=== PATIENT | female | born 1965 | race Caucasian/White ===

== ENCOUNTER 2022-03-02 17:02 | Observation (INO) ==
[2022-03-02] MEDS ORDERED: Ampicillin/Sulbactam 1,500 MG in 0.9 % Sodium Chloride Mini Bag 100 ML IVPB ONE (17:26)
[2022-03-02] MEDS ORDERED: Iopamidol - 370 500 ML MLS IVP ONE (17:27)
[2022-03-02 18:18] LABS: Basophils # 0.1 K/mcL (0.0-0.2); Basophils % 0.9 %; Eosinophils # 0.4 K/mcL (0.0-0.6); Eosinophils % 6.1 %; Hemoglobin 12.1 g/dL (11.5-15.4); Immature Granulocytes % 0.2 % (0-4); Lymphocytes # 1.9 K/mcL (0.6-4.6); Lymphocytes % 28.7 %; Mean Corpuscular HGB Conc 32.7 g/dL (31.6-35.5); Mean Corpuscular Hemoglobin 28.5 pg (28.0-33.3); Mean Corpuscular Volume 87.3 fL (83.0-100.0); Mean Platelet Volume 9.9 fL (9.4-12.4); Monocytes # 0.5 K/mcL (0.0-1.3); Monocytes % 7.8 %; Neutrophils # 3.7 K/mcL (1.6-8.9); Platelet Count 260 K/mcL (140-400); Red Blood Count 4.24 M/mcL (3.82-4.97); Red Cell Distribution Width 13.5 % (11.5-14.5); Segmented Neutrophils % 56.3 %; White Blood Count 6.6 K/mcL (4.3-11.1)
[2022-03-02 18:35] LABS: BUN/Creatinine Ratio 17 (6-26); Blood Urea Nitrogen 10 mg/dL (6-20); Calcium 9.5 mg/dL (8.6-10.3); Carbon Dioxide 26 mEq/L (23-29); Chloride 104 mEq/L (98-107); Glucose 121 mg/dL (70-105); Osmolality,Calculated 286 (280-300); Potassium 3.3 mEq/L (3.5-5.1); Sodium 138 mEq/L (136-145)
[2022-03-02] MEDS ORDERED: Potassium Effervescent 25 MEQ TABLET.EFF PO ONE (18:37)
[2022-03-02] MEDS ORDERED: Ondansetron ODT 4 MG TAB.RAPDIS SL PRN (21:14)
[2022-03-02] MEDS ORDERED: Naloxone 0.4 MG/ML INJ IVP PRN (21:14)
[2022-03-02] MEDS ORDERED: Melatonin 3 MG TABLET PO PRN (21:14)
[2022-03-02] MEDS ORDERED: Ringers Solution, Lactated 500 ML IVC SCH (21:45)
[2022-03-02] MEDS: Ampicillin/Sulbactam 1,500 MG in 0.9 % Sodium Chloride Mini Bag 100 ML IVPB SCH (23:35)
[2022-03-03 05:17] LABS: Basophils # 0.1 K/mcL (0.0-0.2); Basophils % 0.9 %; Eosinophils # 0.5 K/mcL (0.0-0.6); Eosinophils % 8.6 %; Hematocrit 33.9 % (35.3-44.9); Hemoglobin 11.1 g/dL (11.5-15.4); Immature Granulocytes % 0.2 % (0-4); Lymphocytes # 1.9 K/mcL (0.6-4.6); Lymphocytes % 34.1 %; Mean Corpuscular HGB Conc 32.7 g/dL (31.6-35.5); Mean Corpuscular Hemoglobin 28.7 pg (28.0-33.3); Mean Corpuscular Volume 87.6 fL (83.0-100.0); Monocytes # 0.6 K/mcL (0.0-1.3); Neutrophils # 2.5 K/mcL (1.6-8.9); Platelet Count 223 K/mcL (140-400); Red Blood Count 3.87 M/mcL (3.82-4.97); Red Cell Distribution Width 13.5 % (11.5-14.5); Segmented Neutrophils % 45.2 %; White Blood Count 5.6 K/mcL (4.3-11.1)
[2022-03-03 05:30] LABS: Prothrombin Time 11.2 Seconds (9.4-12.1)
[2022-03-03 05:32] LABS: Activated Partial Thrombo Time 33.4 Seconds (26.0-36.0)
[2022-03-03 05:36] LABS: Alanine Aminotransferase 12 Units/L (7-52); Alkaline Phosphatase 78 Units/L (34-104); Aspartate Amino Transferase 14 Units/L (13-39); BUN/Creatinine Ratio 19 (6-26); Bilirubin,Total 0.3 mg/dL (0.3-1.0); Blood Urea Nitrogen 10 mg/dL (6-20); Calcium 9.1 mg/dL (8.6-10.3); Carbon Dioxide 26 mEq/L (23-29); Chloride 107 mEq/L (98-107); Glucose 106 mg/dL (70-105); Osmolality,Calculated 287 (280-300); Potassium 3.8 mEq/L (3.5-5.1); Sodium 139 mEq/L (136-145)
[2022-03-03] MEDS: Ampicillin/Sulbactam 1,500 MG in 0.9 % Sodium Chloride Mini Bag 100 ML IVPB SCH ×4 (05:59→23:35)
[2022-03-03] MEDS: *HR* Enoxaparin 40 MG/0.4 ML SYRINGE SQ SCH (05:59)
[2022-03-03] MEDS ORDERED: *HR* OxyCODONE Immed Rel 5 MG TABLET PO PRN (06:49)
[2022-03-03] MEDS ORDERED: *HR* HYDROcodone/Acet 5/325 mg TABLET PO PRN (06:49)
[2022-03-03] MEDS: Acetaminophen 325 MG TABLET PO PRN ×3 (06:54→23:35)
[2022-03-03] MEDS: Lactobacillus 1 EACH CAP.SPRINK PO SCH ×2 (08:19→21:00)
[2022-03-04] MEDS: *HR* Enoxaparin 40 MG/0.4 ML SYRINGE SQ SCH ×2 (05:37→05:40)
[2022-03-04] MEDS: Ampicillin/Sulbactam 1,500 MG in 0.9 % Sodium Chloride Mini Bag 100 ML IVPB SCH ×4 (05:37→23:35)
[2022-03-04] MEDS: Lactobacillus 1 EACH CAP.SPRINK PO SCH ×2 (08:20→20:46)
[2022-03-04] MEDS: Acetaminophen 325 MG TABLET PO PRN (13:47)
[2022-03-05 03:39] LABS: Basophils # 0.1 K/mcL (0.0-0.2); Eosinophils # 0.6 K/mcL (0.0-0.6); Eosinophils % 9.6 %; Hematocrit 37.1 % (35.3-44.9); Hemoglobin 12.2 g/dL (11.5-15.4); Immature Granulocytes % 0.2 % (0-4); Lymphocytes # 2.5 K/mcL (0.6-4.6); Lymphocytes % 39.4 %; Mean Corpuscular HGB Conc 32.9 g/dL (31.6-35.5); Mean Corpuscular Hemoglobin 28.5 pg (28.0-33.3); Mean Corpuscular Volume 86.7 fL (83.0-100.0); Mean Platelet Volume 9.8 fL (9.4-12.4); Monocytes # 0.5 K/mcL (0.0-1.3); Monocytes % 8.2 %; Neutrophils # 2.6 K/mcL (1.6-8.9); Platelet Count 259 K/mcL (140-400); Red Blood Count 4.28 M/mcL (3.82-4.97); Red Cell Distribution Width 13.4 % (11.5-14.5); Segmented Neutrophils % 41.6 %; White Blood Count 6.2 K/mcL (4.3-11.1)
[2022-03-05 03:57] LABS: BUN/Creatinine Ratio 23 (6-26); Blood Urea Nitrogen 12 mg/dL (6-20); Calcium 9.2 mg/dL (8.6-10.3); Carbon Dioxide 24 mEq/L (23-29); Chloride 108 mEq/L (98-107); Glucose 97 mg/dL (70-105); Magnesium 1.9 mg/dL (1.6-2.6); Osmolality,Calculated 292 (280-300); Potassium 4.1 mEq/L (3.5-5.1); Sodium 141 mEq/L (136-145)
[2022-03-05] MEDS: Acetaminophen 325 MG TABLET PO PRN (03:59)
[2022-03-05] MEDS: Ampicillin/Sulbactam 1,500 MG in 0.9 % Sodium Chloride Mini Bag 100 ML IVPB SCH (05:34)
[2022-03-05] MEDS: *HR* Enoxaparin 40 MG/0.4 ML SYRINGE SQ SCH (05:36)
[2022-03-05] MEDS ORDERED: Levothyroxine 25 MCG TABLET PO SCH (06:30)
[2022-03-05] MEDS: Lactobacillus 1 EACH CAP.SPRINK PO SCH (07:58)
[2022-03-05] MEDS ORDERED: Vitamin B Complex/Vit C/Vit E 1 EACH TABLET PO SCH (09:00)
[2022-03-05] MEDS ORDERED: Magnesium Oxide 400 MG TABLET PO SCH (09:00)
[2022-03-05] MEDS ORDERED: Zinc Sulfate 220 MG CAPSULE PO SCH (09:00)
[2022-03-05] MEDS ORDERED: Ascorbic Acid 500 MG TABLET PO SCH (09:00)
[2022-03-05 10:33] VITALS: BP 110/80; PULSE 90; TEMP 98.1; O2SAT 90
[2022-03-05] MEDS ORDERED: Aspirin Enteric Coated 81 MG Tablet PO SCH (21:00)
== END 2022-03-05 12:08 | disposition home or self-care (01) ==
LOC: EMEROOARM 17:02 → 4WAOSI 17:02 → SUATTDRO 20:27 → 4WAOSI 21:35 → 3ANU 03-04 17:11
PROVIDERS: ADMIT Internal Medicine; ATTEND Pharmacist